=== PATIENT | female | born 1935 | race Caucasian/White ===

== ENCOUNTER → 2016-07-31 | Outpatient (CLI) | payer MEDICARE, BC | END | disposition home or self-care (01) | LOC: PCVCCLINIC 15:44 | PROVIDERS: ATTEND Internal Medicine Cardiovascular Disease | DX: I35.0 Nonrheumatic aortic (valve) stenosis (principal); E78.5 Hyperlipidemia, unspecified; I48.0 Paroxysmal atrial fibrillation; I49.5 Sick sinus syndrome; I10 Essential (primary) hypertension; J44.9 Chronic obstructive pulmonary disease, unspecified; I44.7 Left bundle-branch block, unspecified; Z95.0 Presence of cardiac pacemaker; Z79.899 Other long term (current) drug therapy; Z90.49 Acquired absence of other specified parts of digestive tract; Z87.891 Personal history of nicotine dependence | CPT/HCPCS: 80061; 93005; G0463 ==

== ENCOUNTER → 2017-05-14 | Outpatient (CLI) | payer MEDICARE, BC | END | disposition home or self-care (01) | LOC: PCVCIMAG 13:18 | DX: I08.3 Combined rheumatic disorders of mitral, aortic and tricuspid valves (principal); I48.0 Paroxysmal atrial fibrillation; E78.00 Pure hypercholesterolemia, unspecified; I10 Essential (primary) hypertension; I25.10 Atherosclerotic heart disease of native coronary artery without angina pectoris; D64.9 Anemia, unspecified; I49.5 Sick sinus syndrome; Z95.0 Presence of cardiac pacemaker; Z87.891 Personal history of nicotine dependence; Z79.899 Other long term (current) drug therapy | CPT/HCPCS: 80061; 93280; 93306; G0463 ==

== ENCOUNTER → 2018-01-04 | Outpatient (CLI) | payer MEDICARE, BC | END | disposition home or self-care (01) | LOC: PCVCCLINIC 11:00 | PROVIDERS: ATTEND Internal Medicine Cardiovascular Disease | DX: I48.0 Paroxysmal atrial fibrillation (principal); I08.0 Rheumatic disorders of both mitral and aortic valves; I10 Essential (primary) hypertension; E78.00 Pure hypercholesterolemia, unspecified; J96.11 Chronic respiratory failure with hypoxia; Q87.89 Other specified congenital malformation syndromes, not elsewhere classified; R62.52 Short stature (child); Q16.1 Congenital absence, atresia and stricture of auditory canal (external); Q78.9 Osteochondrodysplasia, unspecified; M26.04 Mandibular hypoplasia; Z87.891 Personal history of nicotine dependence; Z79.82 Long term (current) use of aspirin | CPT/HCPCS: 93005; 93280; G0463 ==

== ENCOUNTER → 2018-07-10 | Outpatient (CLI) | payer MEDICARE, BC ==
--- NOTE | 2018-07-11 09:15 | PCVCIMAG ---
APPROVED REPORT Study performed: 07/10/2018 10:06:57 EXAM: Comprehensive 2D, Doppler, and color-flow Echocardiogram Patient Location: Echo lab Status: routine BSA: 1.62 HR: 60 bpmBP: 152/74 mmHg Rhythm: Pacemaker Other Information Study Quality: Adequate Indications COPD Atrial Fibrillation Dyspnea Pacemaker aortic stenosis, mitral stenosis 2D Dimensions IVSd: 14.98 (7-11mm)LVOT Diam: 19.94 (18-24mm) LVDd: 44.55 mm PWd: 11.35 (7-11mm)Ascending Ao: 29.37 (22-36mm) LVDs: 30.47 (25-40mm) Left Atrium: 54.24 (27-40mm) Aortic Root: 30.27 mm LV Single Plane 4CH: 51.67 % LV Single Plane 2CH: 63.33 % Biplane EF: 57.6 % Volumes Left Atrial Volume (Systole) Single Plane 4CH: 120.32 mLSingle Plane 2CH: 127.26 mL LA ESV Index: 79.00 mL/m2 Aortic Valve AoV Peak Ludin.: 3.46 m/s AO Peak Gr.: 47.83 mmHgLVOT Max P.90 mmHg AO Mean Gr.: 22.40 mmHgLVOT Mean P.91 mmHg AO V2 Mean: 2.12 m/sLVOT Max V: 1.41 m/s AO V2 VTI: 91.97 cmLVOT Mean V: 0.91 m/s MANNY (VTI): 1.21 [id number] V1 VTI: 35.78 cm MANNY Vmax: 1.27 cm2 SV (LVOT): 111.69 mL Mitral Valve MV Peak Gr.: 24.79 mmHg MV Mean Gr.: 7.56 mmHgE/A Ratio: 1.3 MV Decel. Time: 398.64 ms MV E Max Ludin.: 1.76 m/s MV A Ludni.: 1.34 m/s MV Max Ludin.: 2.49 m/s MV Mean Ludin.: 1.25 m/s MV VTI: 642.85 mm MVA VTI: 173.73 mm2 MV PHT: 131.39 ms MVA (PHT): 1.67 cm2 Pulmonary Valve PV Peak Ludin.: 1.09 m/sPV Peak Gr.: 4.75 mmHg Pulmonary Vein P Vein S: 0.31 m/s P Vein D: 0.59 m/s P Vein S/D Ratio: 0.53 Tricuspid Valve TR Peak Ludin.: 3.25 m/s TR Peak Gr.: 42.20 mmHg TV Vmax: 0.50 m/s Left Ventricle The left ventricle is normal size. There is normal LV segmental wall motion. Mild concentric left ventricular hypertrophy. The left ventricular systolic function is normal. The left ventricular ejection fraction is within the normal range. LVEF is 60%. Grade II - pseudonormal filling dynamics. Right Ventricle The right ventricle is normal size. The right ventricular systolic function is normal. Atria Left atrium is markedly-severely dilated. Right atrium is severely dilated. Aortic Valve The aortic valve is moderately to severely calcified. No aortic regurgitation is present. There is moderate valvular aortic stenosis. Calculated aortic valve area is 1.3 cm2 with maximum pressure gradient of 48 mmHg and mean pressure gradient of 22 mmHg. Mitral Valve Heavy posterior leaflet and mitral annular calcification. Moderate mitral regurgitation. Moderate mitral stenosis present. Calculated mitral valve area is 1.7 cm2 with maximum pressure gradient of 25 mmHg and mean pressure gradient of 7.6 mmHg. Tricuspid Valve The tricuspid valve is normal in structure. Moderate tricuspid regurgitation with PAP of 50 mmHg. Pulmonic Valve The pulmonary valve is normal in structure. There is no pulmonic valvular regurgitation. Great Vessels The aortic root is normal in size. IVC is normal in size and collapses >50% with inspiration. Pericardium There is no pericardial effusion. There is no pleural effusion. <Conclusion> The left ventricle is normal size. Mild concentric left ventricular hypertrophy. LVEF is 60%. Grade II - pseudonormal filling dynamics. The right ventricle is normal size. Left atrium is markedly-severely dilated. Right atrium is severely dilated. The aortic valve is moderately to severely calcified. There is moderate valvular aortic stenosis. Calculated aortic valve area is 1.3 cm2 with maximum pressure gradient of 48 mmHg and mean pressure gradient of 22 mmHg. Heavy posterior leaflet and mitral annular calcification. Moderate mitral regurgitation. Moderate mitral stenosis present. Calculated mitral valve area is 1.7 cm2 with maximum pressure gradient of 25 mmHg and mean pressure gradient of 7.6 mmHg. Moderate tricuspid regurgitation with PAP of 50 mmHg. The aortic root is normal in size. There is no pericardial effusion.
== END | disposition home or self-care (01) ==
LOC: PCVCIMAG 10:21
PROVIDERS: ATTEND Internal Medicine Cardiovascular Disease
DX: I08.1 Rheumatic disorders of both mitral and tricuspid valves (principal); R05 Cough; I48.0 Paroxysmal atrial fibrillation; E78.00 Pure hypercholesterolemia, unspecified; I49.5 Sick sinus syndrome; Q87.89 Other specified congenital malformation syndromes, not elsewhere classified; Q16.1 Congenital absence, atresia and stricture of auditory canal (external); Q78.9 Osteochondrodysplasia, unspecified; J44.9 Chronic obstructive pulmonary disease, unspecified; I11.9 Hypertensive heart disease without heart failure
CPT/HCPCS: 36415; 80061; 93280; 93306; G0463